=== PATIENT | male | born 1990 | race Caucasian/White ===

== ENCOUNTER 2022-02-04 14:13 | Inpatient (IN) ==
[2022-02-04 14:56] LABS: Basophils # 0.1 K/mcL (0.0-0.2); Basophils % 0.4 %; Eosinophils # 0.3 K/mcL (0.0-0.6); Eosinophils % 1.9 %; Hematocrit 45.5 % (37.5-50.1); Hemoglobin 15.1 g/dL (12.9-16.9); Immature Granulocytes % 0.3 % (0-4); Lymphocytes # 1.5 K/mcL (0.6-4.6); Lymphocytes % 10.4 %; Mean Corpuscular HGB Conc 33.2 g/dL (31.6-35.5); Mean Corpuscular Hemoglobin 28.9 pg (28.0-33.3); Monocytes # 0.7 K/mcL (0.0-1.3); Monocytes % 4.7 %; Neutrophils # 11.6 K/mcL (1.6-8.9); Platelet Count 283 K/mcL (140-400); Red Blood Count 5.23 M/mcL (4.19-5.50); Red Cell Distribution Width 12.5 % (11.5-14.5); Segmented Neutrophils % 82.3 %
[2022-02-04 15:16] LABS: BUN/Creatinine Ratio 10 (6-26); Blood Urea Nitrogen 8 mg/dL (6-20); Calcium 10.2 mg/dL (8.6-10.3); Carbon Dioxide 30 mEq/L (23-29); Chloride 98 mEq/L (98-107); Glucose 117 mg/dL (70-105); Osmolality,Calculated 281 (280-300); Sodium 136 mEq/L (136-145); eGFR For African Americans > 60 (> 60); eGFR For Non-African Americans > 60 (> 60)
[2022-02-04 15:30] LABS: Influenza A PCR Negative (Negative); Influenza B PCR Negative (Negative); Resp. Syncytial Virus PCR Negative (Negative)
[2022-02-04] MEDS ORDERED: Azithromycin 500 MG in 0.9 % Sodium Chloride 250 ML IVPB ONE (15:51)
[2022-02-04] MEDS ORDERED: Ondansetron ODT 4 MG TAB.RAPDIS SL PRN (16:00)
[2022-02-04] MEDS ORDERED: Acetaminophen 325 MG TABLET PO PRN (16:00)
[2022-02-04] MEDS ORDERED: Naloxone 0.4 MG/ML INJ IVP PRN (16:00)
[2022-02-04] MEDS ORDERED: Albuterol 2.5 MG/3 ML NEBULIZER IH PRN (16:08)
[2022-02-04] MEDS: levoFLOXacin 750 MG/150 ML 750 MG/150 ML BAG IVPB SCH (16:35)
[2022-02-04 16:40] LABS: SARS-CoV-2 by PCR (In House) Negative (Negative)
[2022-02-04] MEDS: Acetylcysteine 10% 2 ML INHSOL IH SCH ×3 (17:32→23:38)
[2022-02-04] MEDS: MethylPREDNISolone 40 MG/ML VIAL IVP SCH (18:07)
[2022-02-04] MEDS ORDERED: Ipratropium/Albuterol Neb 3 ML IH SCH (20:00)
[2022-02-04] MEDS ORDERED: lamoTRIgine 100 MG TABLET PO SCH (22:45)
[2022-02-04] MEDS: diazePAM 5 MG TABLET PO SCH (23:18)
[2022-02-04] MEDS: Gabapentin 300 MG CAPSULE PO SCH (23:18)
[2022-02-04] MEDS: Levalbuterol Neb 0.63 MG/3 ML IH SCH (23:38)
[2022-02-05] MEDS: Levalbuterol Neb 0.63 MG/3 ML IH SCH ×6 (04:31→23:33)
[2022-02-05] MEDS: Acetylcysteine 10% 2 ML INHSOL IH SCH ×6 (04:32→23:33)
[2022-02-05] MEDS: FLUPHENAZINE 1 MG PO SCH ×2 (06:09→16:14)
[2022-02-05] MEDS: MethylPREDNISolone 40 MG/ML VIAL IVP SCH ×2 (06:09→16:13)
[2022-02-05] MEDS: BANZEL 400 MG PO SCH ×2 (06:09→20:22)
[2022-02-05] MEDS: diazePAM 5 MG TABLET PO SCH ×2 (06:10→20:26)
[2022-02-05] MEDS: AMPHETAMINE PO SCH (06:11)
[2022-02-05] MEDS: Clobazam [Onfi] 10 MG PO SCH ×2 (06:11→16:42)
[2022-02-05] MEDS: DEXTROAMPHETAMINE PO SCH (06:11)
[2022-02-05 06:44] LABS: Basophils % 0.1 %; Eosinophils # 0.1 K/mcL (0.0-0.6); Eosinophils % 0.7 %; Hemoglobin 13.9 g/dL (12.9-16.9); Immature Granulocytes % 0.4 % (0-4); Lymphocytes # 2.5 K/mcL (0.6-4.6); Mean Corpuscular HGB Conc 33.1 g/dL (31.6-35.5); Mean Corpuscular Hemoglobin 28.9 pg (28.0-33.3); Mean Corpuscular Volume 87.3 fL (83.0-100.0); Mean Platelet Volume 10.4 fL (9.4-12.4); Monocytes # 0.8 K/mcL (0.0-1.3); Monocytes % 5.3 %; Neutrophils # 10.6 K/mcL (1.6-8.9); Platelet Count 241 K/mcL (140-400); Red Blood Count 4.81 M/mcL (4.19-5.50); Red Cell Distribution Width 12.7 % (11.5-14.5); Segmented Neutrophils % 75.5 %; White Blood Count 14.1 K/mcL (4.3-11.1)
[2022-02-05 07:07] LABS: BUN/Creatinine Ratio 14 (6-26); Blood Urea Nitrogen 9 mg/dL (6-20); Calcium 9.6 mg/dL (8.6-10.3); Carbon Dioxide 28 mEq/L (23-29); Chloride 100 mEq/L (98-107); Glucose 101 mg/dL (70-105); Osmolality,Calculated 279 (280-300); Potassium 3.9 mEq/L (3.5-5.1); Sodium 135 mEq/L (136-145); eGFR For African Americans > 60 (> 60); eGFR For Non-African Americans > 60 (> 60)
[2022-02-05] MEDS ORDERED: SUMAtriptan succinate 50 MG TABLET PO PRN (07:34)
[2022-02-05] MEDS: Cyanocobalamin (B-12) 1,000 MCG TABLET PO SCH (07:40)
[2022-02-05] MEDS: Cholecalciferol (D-3) 1,000 UNIT (25MCG) TABLET PO SCH (07:40)
[2022-02-05] MEDS ORDERED: levoFLOXacin 750 MG/150 ML 750 MG/150 ML BAG IVPB SCH (09:00)
[2022-02-05] MEDS: Azelastine 0.1% Nasal Spray 30 ML BOTTLE NS SCH ×2 (11:10→20:21)
[2022-02-05] MEDS ORDERED: Fluticasone Propionate Nasal 50 MCG/SPRAY BOTTLE NS PRN (11:46)
[2022-02-05] MEDS: levoFLOXacin 750 MG/150 ML 750 MG/150 ML BAG IVPB SCH (16:12)
[2022-02-05] MEDS: Plecanatide [Trulance] 3 MG PO SCH (16:17)
[2022-02-05] MEDS: Gabapentin 300 MG CAPSULE PO SCH (20:21)
[2022-02-05] MEDS: LAMOTRIGINE 300 MG PO SCH (20:23)
[2022-02-06] MEDS ORDERED: *HR* LORazepam 2 MG/ML VIAL IVP ONE ×2 (03:18→12:46)
[2022-02-06] MEDS: Levalbuterol Neb 0.63 MG/3 ML IH SCH ×6 (04:26→23:44)
[2022-02-06] MEDS: Acetylcysteine 10% 2 ML INHSOL IH SCH ×6 (04:26→23:45)
[2022-02-06 04:57] LABS: Basophils % 0.1 %; Eosinophils # 0.3 K/mcL (0.0-0.6); Hematocrit 42.2 % (37.5-50.1); Hemoglobin 13.9 g/dL (12.9-16.9); Immature Granulocytes % 0.4 % (0-4); Lymphocytes % 14.7 %; Mean Corpuscular HGB Conc 32.9 g/dL (31.6-35.5); Mean Corpuscular Hemoglobin 28.8 pg (28.0-33.3); Mean Corpuscular Volume 87.6 fL (83.0-100.0); Mean Platelet Volume 10.3 fL (9.4-12.4); Monocytes # 0.8 K/mcL (0.0-1.3); Monocytes % 6.1 %; Neutrophils # 10.6 K/mcL (1.6-8.9); Platelet Count 224 K/mcL (140-400); Red Blood Count 4.82 M/mcL (4.19-5.50); Red Cell Distribution Width 12.8 % (11.5-14.5); Segmented Neutrophils % 76.7 %; White Blood Count 13.8 K/mcL (4.3-11.1)
[2022-02-06 05:16] LABS: BUN/Creatinine Ratio 20 (6-26); Blood Urea Nitrogen 13 mg/dL (6-20); Calcium 9.6 mg/dL (8.6-10.3); Carbon Dioxide 25 mEq/L (23-29); Chloride 98 mEq/L (98-107); Glucose 96 mg/dL (70-105); Magnesium 1.9 mg/dL (1.6-2.6); Osmolality,Calculated 280 (280-300); Potassium 3.7 mEq/L (3.5-5.1); Sodium 135 mEq/L (136-145); eGFR For African Americans > 60 (> 60); eGFR For Non-African Americans > 60 (> 60)
[2022-02-06] MEDS: MethylPREDNISolone 40 MG/ML VIAL IVP SCH ×2 (06:03→17:09)
[2022-02-06] MEDS: Magnesium Oxide 400 MG TABLET PO SCH (06:04)
[2022-02-06] MEDS: diazePAM 5 MG TABLET PO SCH ×3 (06:04→20:40)
[2022-02-06] MEDS: BANZEL 400 MG PO SCH ×2 (06:05→20:39)
[2022-02-06] MEDS: FLUPHENAZINE 1 MG PO SCH ×2 (06:06→17:07)
[2022-02-06] MEDS: DEXTROAMPHETAMINE PO SCH (06:16)
[2022-02-06] MEDS: AMPHETAMINE PO SCH (06:16)
[2022-02-06] MEDS: Clobazam [Onfi] 10 MG PO SCH ×2 (06:16→17:08)
[2022-02-06] MEDS: Cholecalciferol (D-3) 1,000 UNIT (25MCG) TABLET PO SCH (08:53)
[2022-02-06] MEDS: Azelastine 0.1% Nasal Spray 30 ML BOTTLE NS SCH ×2 (08:53→21:35)
[2022-02-06] MEDS: Cyanocobalamin (B-12) 1,000 MCG TABLET PO SCH (08:53)
[2022-02-06] MEDS ORDERED: Isovue-370 500 ML BOTTLE IVP ONE (10:57)
[2022-02-06 11:25] LABS: ABG Base Excess 2 mEq/L (-2 to 3); ABG HCO3 27 mEq/L (21-27); ABG Oxygen Saturation 96 % (95-98); ABG PCO2 42 mmHg (35-45); ABG PH 7.41 pH Units (7.32-7.45); ABG PO2 83 mmHg (85-104); ABG TCO2 28 mEq/L (20-26); Blood Gas Pressure Support 6 cm H2O
[2022-02-06] MEDS ORDERED: Haloperidol Lactate 5 MG/ML VIAL IVP ONE (12:12)
[2022-02-06 15:40] LABS: Adenovirus Not Detected (Not Detect); Coronavirus 229E Not Detected (Not Detect); Coronavirus HKU1 Not Detected (Not Detect); Coronavirus NL63 Not Detected (Not Detect); Coronavirus OC43 Not Detected (Not Detect); Human Metapneumovirus Not Detected (Not Detect); Human Rhinovirus/Enterovirus Not Detected (Not Detect); Influenza A Subtype 2009 H1 Not Detected (Not Detect); Influenza B Not Detected (Not Detect); Parainfluenza Virus 1 Not Detected (Not Detect); Parainfluenza Virus 2 Not Detected (Not Detect); Parainfluenza Virus 3 Not Detected (Not Detect); Parainfluenza Virus 4 Not Detected (Not Detect); Respiratory Syncytial Virus Not Detected (Not Detect); SARS-CoV-2 Not Detected (Not Detect)
[2022-02-06 15:41] LABS: Bordetella Pertussis Not Detected (Not Detect); Chlamydophila pneumoniae Not Detected (Not Detect); Mycoplasma pneumoniae Not Detected (Not Detect)
[2022-02-06] MEDS: Plecanatide [Trulance] 3 MG PO SCH (17:08)
[2022-02-06] MEDS: Piperacillin/Tazobactam 3.375 GM in 0.9 % Sodium Chloride Mini Bag 100 ML IVPB SCH (17:09)
[2022-02-06] MEDS: *HR* LORazepam 2 MG/ML VIAL IVP PRN (17:14)
[2022-02-06] MEDS: Melatonin 3 MG TABLET PO SCH (20:23)
[2022-02-06] MEDS: Gabapentin 300 MG CAPSULE PO SCH (20:24)
[2022-02-06] MEDS: LAMOTRIGINE 300 MG PO SCH (20:39)
[2022-02-07] MEDS: Piperacillin/Tazobactam 3.375 GM in 0.9 % Sodium Chloride Mini Bag 100 ML IVPB SCH ×3 (00:02→16:26)
[2022-02-07] MEDS: Acetylcysteine 10% 2 ML INHSOL IH SCH ×6 (04:14→23:56)
[2022-02-07] MEDS: Levalbuterol Neb 0.63 MG/3 ML IH SCH ×6 (04:14→23:55)
[2022-02-07] MEDS: MethylPREDNISolone 40 MG/ML VIAL IVP SCH ×2 (04:39→16:15)
[2022-02-07] MEDS: diazePAM 5 MG TABLET PO SCH ×2 (08:51→21:21)
[2022-02-07] MEDS: Magnesium Oxide 400 MG TABLET PO SCH (08:52)
[2022-02-07] MEDS: Cholecalciferol (D-3) 1,000 UNIT (25MCG) TABLET PO SCH (08:52)
[2022-02-07] MEDS: Cyanocobalamin (B-12) 1,000 MCG TABLET PO SCH (08:52)
[2022-02-07] MEDS: Azelastine 0.1% Nasal Spray 30 ML BOTTLE NS SCH ×2 (08:53→21:21)
[2022-02-07] MEDS: BANZEL 400 MG PO SCH ×2 (08:54→21:17)
[2022-02-07] MEDS: FLUPHENAZINE 1 MG PO SCH ×2 (08:54→16:16)
[2022-02-07] MEDS: Clobazam [Onfi] 10 MG PO SCH ×2 (09:58→16:35)
[2022-02-07] MEDS: DEXTROAMPHETAMINE PO SCH (09:58)
[2022-02-07] MEDS: AMPHETAMINE PO SCH (09:58)
[2022-02-07] MEDS: *HR* LORazepam 2 MG/ML VIAL IVP PRN ×2 (16:16→22:13)
[2022-02-07] MEDS: Plecanatide [Trulance] 3 MG PO SCH (16:17)
[2022-02-07] MEDS: 0.9 % Sodium Chloride 1,000 ML IVC SCH (16:27)
[2022-02-07] MEDS: *HR* Heparin 5,000 UNIT/ML VIAL SQ SCH (17:20)
[2022-02-07] MEDS: Gabapentin 300 MG CAPSULE PO SCH (21:16)
[2022-02-07] MEDS: Melatonin 3 MG TABLET PO SCH (21:17)
[2022-02-07] MEDS: LAMOTRIGINE 300 MG PO SCH (21:18)
[2022-02-08] MEDS: Piperacillin/Tazobactam 3.375 GM in 0.9 % Sodium Chloride Mini Bag 100 ML IVPB SCH ×3 (01:04→15:58)
[2022-02-08] MEDS: Acetylcysteine 10% 2 ML INHSOL IH SCH ×5 (04:15→19:52)
[2022-02-08] MEDS: Levalbuterol Neb 0.63 MG/3 ML IH SCH ×5 (04:15→19:52)
[2022-02-08] MEDS: 0.9 % Sodium Chloride 1,000 ML IVC SCH ×2 (04:57→20:18)
[2022-02-08] MEDS: MethylPREDNISolone 40 MG/ML VIAL IVP SCH (04:57)
[2022-02-08] MEDS: *HR* Heparin 5,000 UNIT/ML VIAL SQ SCH ×2 (06:23→16:04)
[2022-02-08] MEDS: Magnesium Oxide 400 MG TABLET PO SCH (07:00)
[2022-02-08] MEDS: BANZEL 400 MG PO SCH ×2 (07:01→20:21)
[2022-02-08] MEDS: FLUPHENAZINE 1 MG PO SCH ×2 (07:03→15:58)
[2022-02-08] MEDS: diazePAM 5 MG TABLET PO SCH ×2 (07:04→20:19)
[2022-02-08 07:21] LABS: Basophils % 0.3 %; Eosinophils # 0.1 K/mcL (0.0-0.6); Eosinophils % 1.1 %; Hematocrit 40.3 % (37.5-50.1); Hemoglobin 13.1 g/dL (12.9-16.9); Immature Granulocytes % 0.6 % (0-4); Lymphocytes # 1.3 K/mcL (0.6-4.6); Lymphocytes % 11.2 %; Mean Corpuscular HGB Conc 32.5 g/dL (31.6-35.5); Mean Corpuscular Volume 89.4 fL (83.0-100.0); Mean Platelet Volume 10.1 fL (9.4-12.4); Monocytes # 0.4 K/mcL (0.0-1.3); Monocytes % 3.2 %; Platelet Count 228 K/mcL (140-400); Red Blood Count 4.51 M/mcL (4.19-5.50); Red Cell Distribution Width 12.8 % (11.5-14.5); Segmented Neutrophils % 83.6 %; White Blood Count 11.9 K/mcL (4.3-11.1)
[2022-02-08 07:41] LABS: BUN/Creatinine Ratio 28 (6-26); Blood Urea Nitrogen 16 mg/dL (6-20); Calcium 9.4 mg/dL (8.6-10.3); Carbon Dioxide 28 mEq/L (23-29); Chloride 102 mEq/L (98-107); Glucose 98 mg/dL (70-105); Osmolality,Calculated 285 (280-300); Potassium 3.9 mEq/L (3.5-5.1); Sodium 137 mEq/L (136-145); eGFR For African Americans > 60 (> 60); eGFR For Non-African Americans > 60 (> 60)
[2022-02-08] MEDS: AMPHETAMINE PO SCH (09:14)
[2022-02-08] MEDS: Clobazam [Onfi] 10 MG PO SCH ×2 (09:14→16:12)
[2022-02-08] MEDS: DEXTROAMPHETAMINE PO SCH (09:14)
[2022-02-08] MEDS: Azelastine 0.1% Nasal Spray 30 ML BOTTLE NS SCH ×2 (09:15→20:22)
[2022-02-08] MEDS: Cyanocobalamin (B-12) 1,000 MCG TABLET PO SCH (09:18)
[2022-02-08] MEDS: Cholecalciferol (D-3) 1,000 UNIT (25MCG) TABLET PO SCH (09:19)
[2022-02-08] MEDS ORDERED: Dextrose Gel 15 GM/37.5 ML TUBE PO PRN ×2 (13:15)
[2022-02-08] MEDS ORDERED: D5% in Water 1,000 ML IVC PRN (13:15)
[2022-02-08] MEDS ORDERED: *HR* Dextrose 50 % in Water (Syg) 50 ML SYRINGE IVP PRN (13:15)
[2022-02-08] MEDS: Plecanatide [Trulance] 3 MG PO SCH (15:58)
[2022-02-08] MEDS: GuaiFENesin/Dextromethorphan TABLET PO SCH (20:19)
[2022-02-08] MEDS: Lactobacillus 1 EACH CAP.SPRINK PO SCH (20:19)
[2022-02-08] MEDS: *HR* LORazepam 2 MG/ML VIAL IVP PRN (20:20)
[2022-02-08] MEDS: Gabapentin 300 MG CAPSULE PO SCH (20:20)
[2022-02-08] MEDS: Chlorhexidine Rinse 15 ML MOUTHWASH MM SCH (20:20)
[2022-02-08] MEDS: Melatonin 3 MG TABLET PO SCH (20:20)
[2022-02-08] MEDS: LAMOTRIGINE 300 MG PO SCH (20:21)
[2022-02-09] MEDS: Levalbuterol Neb 0.63 MG/3 ML IH SCH ×7 (00:30→23:41)
[2022-02-09] MEDS: Acetylcysteine 10% 2 ML INHSOL IH SCH ×2 (00:30→04:19)
[2022-02-09] MEDS: Piperacillin/Tazobactam 3.375 GM in 0.9 % Sodium Chloride Mini Bag 100 ML IVPB SCH ×2 (00:43→08:31)
[2022-02-09 05:54] LABS: Basophils % 0.3 %; Eosinophils # 0.3 K/mcL (0.0-0.6); Eosinophils % 3.2 %; Hematocrit 39.7 % (37.5-50.1); Hemoglobin 12.8 g/dL (12.9-16.9); Immature Granulocytes % 0.6 % (0-4); Lymphocytes # 3.1 K/mcL (0.6-4.6); Lymphocytes % 31.3 %; Mean Corpuscular HGB Conc 32.2 g/dL (31.6-35.5); Mean Corpuscular Hemoglobin 28.8 pg (28.0-33.3); Mean Corpuscular Volume 89.4 fL (83.0-100.0); Mean Platelet Volume 10.1 fL (9.4-12.4); Monocytes # 0.6 K/mcL (0.0-1.3); Monocytes % 5.8 %; Neutrophils # 5.8 K/mcL (1.6-8.9); Platelet Count 220 K/mcL (140-400); Red Blood Count 4.44 M/mcL (4.19-5.50); Red Cell Distribution Width 12.8 % (11.5-14.5); Segmented Neutrophils % 58.8 %; White Blood Count 9.9 K/mcL (4.3-11.1)
[2022-02-09 06:30] LABS: BUN/Creatinine Ratio 18 (6-26); Blood Urea Nitrogen 11 mg/dL (6-20); Carbon Dioxide 28 mEq/L (23-29); Chloride 104 mEq/L (98-107); Glucose 101 mg/dL (70-105); Magnesium 1.7 mg/dL (1.6-2.6); Osmolality,Calculated 288 (280-300); Phosphorous 4.2 mg/dL (2.7-4.5); Potassium 3.7 mEq/L (3.5-5.1); Sodium 139 mEq/L (136-145); eGFR For African Americans > 60 (> 60); eGFR For Non-African Americans > 60 (> 60)
[2022-02-09] MEDS: *HR* Heparin 5,000 UNIT/ML VIAL SQ SCH ×2 (06:33→16:17)
[2022-02-09] MEDS ORDERED: Potassium Chloride Elixir 20 MEQ/15 ML UDC PO ONE (07:25)
[2022-02-09] MEDS: BANZEL 400 MG PO SCH ×2 (08:26→20:21)
[2022-02-09] MEDS: FLUPHENAZINE 1 MG PO SCH ×2 (08:26→16:20)
[2022-02-09] MEDS: Lactobacillus 1 EACH CAP.SPRINK PO SCH ×2 (08:31→20:19)
[2022-02-09] MEDS: Cyanocobalamin (B-12) 1,000 MCG TABLET PO SCH (08:31)
[2022-02-09] MEDS: Multivit/Ca/Min/Fe/FA 1 TAB TABLET PO SCH (08:31)
[2022-02-09] MEDS: MethylPREDNISolone 40 MG/ML VIAL IVP SCH (08:31)
[2022-02-09] MEDS: Cholecalciferol (D-3) 1,000 UNIT (25MCG) TABLET PO SCH (08:31)
[2022-02-09] MEDS: GuaiFENesin/Dextromethorphan TABLET PO SCH ×2 (08:31→20:19)
[2022-02-09] MEDS: Magnesium Oxide 400 MG TABLET PO SCH (08:31)
[2022-02-09] MEDS: diazePAM 5 MG TABLET PO SCH ×2 (08:33→20:27)
[2022-02-09] MEDS: Chlorhexidine Rinse 15 ML MOUTHWASH MM SCH ×2 (08:34→20:20)
[2022-02-09] MEDS: Azelastine 0.1% Nasal Spray 30 ML BOTTLE NS SCH ×2 (08:43→20:23)
[2022-02-09] MEDS: 0.9 % Sodium Chloride 1,000 ML IVC SCH ×2 (08:46→23:34)
[2022-02-09] MEDS: AMPHETAMINE PO SCH (10:46)
[2022-02-09] MEDS: Clobazam [Onfi] 10 MG PO SCH ×2 (10:46→16:17)
[2022-02-09] MEDS: DEXTROAMPHETAMINE PO SCH (10:46)
[2022-02-09] MEDS: Plecanatide [Trulance] 3 MG PO SCH (16:20)
[2022-02-09] MEDS: Gabapentin 300 MG CAPSULE PO SCH (20:19)
[2022-02-09] MEDS: Melatonin 3 MG TABLET PO SCH (20:20)
[2022-02-09] MEDS: LAMOTRIGINE 300 MG PO SCH (20:22)
[2022-02-09] MEDS: *HR* LORazepam 2 MG/ML VIAL IVP PRN (21:25)
[2022-02-10] MEDS: Levalbuterol Neb 0.63 MG/3 ML IH SCH ×4 (04:02→15:50)
[2022-02-10 04:11] LABS: Basophils % 0.5 %; Eosinophils # 0.4 K/mcL (0.0-0.6); Eosinophils % 4.8 %; Hematocrit 39.6 % (37.5-50.1); Hemoglobin 12.8 g/dL (12.9-16.9); Immature Granulocytes % 0.6 % (0-4); Lymphocytes # 3.3 K/mcL (0.6-4.6); Lymphocytes % 38.8 %; Mean Corpuscular HGB Conc 32.3 g/dL (31.6-35.5); Mean Corpuscular Hemoglobin 28.8 pg (28.0-33.3); Mean Corpuscular Volume 89.2 fL (83.0-100.0); Mean Platelet Volume 10.5 fL (9.4-12.4); Monocytes # 0.6 K/mcL (0.0-1.3); Monocytes % 7.2 %; Neutrophils # 4.1 K/mcL (1.6-8.9); Platelet Count 254 K/mcL (140-400); Red Blood Count 4.44 M/mcL (4.19-5.50); Segmented Neutrophils % 48.1 %; White Blood Count 8.5 K/mcL (4.3-11.1)
[2022-02-10 05:36] LABS: BUN/Creatinine Ratio 15 (6-26); Blood Urea Nitrogen 8 mg/dL (6-20); Calcium 9.1 mg/dL (8.6-10.3); Carbon Dioxide 29 mEq/L (23-29); Chloride 104 mEq/L (98-107); Glucose 100 mg/dL (70-105); Osmolality,Calculated 286 (280-300); Potassium 3.7 mEq/L (3.5-5.1); Sodium 139 mEq/L (136-145); eGFR For African Americans > 60 (> 60); eGFR For Non-African Americans > 60 (> 60)
[2022-02-10] MEDS: Magnesium Oxide 400 MG TABLET PO SCH (06:36)
[2022-02-10] MEDS: *HR* Heparin 5,000 UNIT/ML VIAL SQ SCH (06:37)
[2022-02-10] MEDS: diazePAM 5 MG TABLET PO SCH (06:41)
[2022-02-10] MEDS: FLUPHENAZINE 1 MG PO SCH (06:43)
[2022-02-10] MEDS: BANZEL 400 MG PO SCH (06:43)
[2022-02-10] MEDS: Lactobacillus 1 EACH CAP.SPRINK PO SCH (08:29)
[2022-02-10] MEDS: Clobazam [Onfi] 10 MG PO SCH (08:29)
[2022-02-10] MEDS: GuaiFENesin/Dextromethorphan TABLET PO SCH (08:29)
[2022-02-10] MEDS: Chlorhexidine Rinse 15 ML MOUTHWASH MM SCH (08:29)
[2022-02-10] MEDS: DEXTROAMPHETAMINE PO SCH (08:29)
[2022-02-10] MEDS: Cholecalciferol (D-3) 1,000 UNIT (25MCG) TABLET PO SCH (08:29)
[2022-02-10] MEDS: AMPHETAMINE PO SCH (08:29)
[2022-02-10] MEDS: Multivit/Ca/Min/Fe/FA 1 TAB TABLET PO SCH (08:29)
[2022-02-10] MEDS: Cyanocobalamin (B-12) 1,000 MCG TABLET PO SCH (08:29)
[2022-02-10] MEDS: Azelastine 0.1% Nasal Spray 30 ML BOTTLE NS SCH (08:30)
[2022-02-10] MEDS: MethylPREDNISolone 40 MG/ML VIAL IVP SCH (08:30)
[2022-02-10 11:41] VITALS: BP 102/48; PULSE 66; TEMP 98.1
[2022-02-10 11:43] VITALS: O2SAT 92
[2022-02-10] MEDS ORDERED: E-Z-PAQUE (BARIUM SULF) SUSP 1 BOTTLE PO ONE (12:48)
[2022-02-10] MEDS ORDERED: E-Z-HD (BARIUM SULF) SUSPENSION PO ONE (12:48)
== END 2022-02-10 15:45 | disposition home or self-care (01) | DRG 720 ==
LOC: 3NENU 14:13 → EMEROOARM 14:13 → SUATTDRO 17:08 → 3NENU 17:43 → SUATTDRO 02-05 16:21
PROVIDERS: ADMIT Internal Medicine; ATTEND Internal Medicine

== ENCOUNTER 2022-02-24 12:06 | Observation (INO) ==
[2022-02-24] MEDS ORDERED: *HR* LORazepam 2 MG/ML VIAL IVP ONE (18:21)
[2022-02-24] MEDS ORDERED: Albuterol 2.5 MG/3 ML NEBULIZER IH ONE (18:21)
[2022-02-24] MEDS ORDERED: methylPREDNISolone 125 MG/2 ML VIAL IVP ONE (18:21)
[2022-02-24] MEDS ORDERED: Levalbuterol Neb 1.25 MG/3 ML IH ONE (18:31)
[2022-02-24] MEDS ORDERED: Levalbuterol Neb 1.25 MG/3 ML ONE (18:32)
[2022-02-24 18:36] LABS: VBG HCO3 26 mEq/L (21-27); VBG PCO2 43 mmHg (41-51); VBG PH 7.39 pH Units (7.32-7.42); VBG PO2 58 mmHg (25-50)
[2022-02-24 18:46] LABS: Basophils % 0.3 %; Eosinophils # 0.2 K/mcL (0.0-0.6); Eosinophils % 1.2 %; Hematocrit 44.3 % (37.5-50.1); Hemoglobin 14.3 g/dL (12.9-16.9); Immature Granulocytes % 0.4 % (0-4); Lymphocytes # 2.1 K/mcL (0.6-4.6); Mean Corpuscular HGB Conc 32.3 g/dL (31.6-35.5); Mean Corpuscular Hemoglobin 28.7 pg (28.0-33.3); Mean Corpuscular Volume 88.8 fL (83.0-100.0); Mean Platelet Volume 10.3 fL (9.4-12.4); Monocytes # 0.9 K/mcL (0.0-1.3); Monocytes % 6.1 %; Neutrophils # 10.6 K/mcL (1.6-8.9); Platelet Count 303 K/mcL (140-400); Red Blood Count 4.99 M/mcL (4.19-5.50); Red Cell Distribution Width 13.2 % (11.5-14.5); White Blood Count 13.8 K/mcL (4.3-11.1)
[2022-02-24 19:33] LABS: BUN/Creatinine Ratio 11 (6-26); Blood Urea Nitrogen 7 mg/dL (6-20); Calcium 9.7 mg/dL (8.6-10.3); Carbon Dioxide 27 mEq/L (23-29); Chloride 101 mEq/L (98-107); Glucose 84 mg/dL (70-105); Osmolality,Calculated 279 (280-300); Potassium 3.7 mEq/L (3.5-5.1); Sodium 136 mEq/L (136-145); Troponin I < 0.03 ng/mL (< 0.04); eGFR For African Americans > 60 (> 60); eGFR For Non-African Americans > 60 (> 60)
[2022-02-24 20:16] LABS: Bilirubin,Urine Negative (Negative); Blood,Urine Negative (Negative); Clarity,Urine Clear (Clear); Color,Urine Colorless (Yellow); Glucose,Urine (UA) Normal (Normal); Ketones,Urine Negative (Negative); Leukocyte Esterase,Urine Negative (Negative); Nitrite,Urine Negative (Negative); PH,Urine 7.5 pH Units (5.0-8.0); Protein,Urine Negative (Neg-Trace); Specific Gravity,Urine 1.008 (1.010-1.025); Urobilinogen,Urine Normal (Normal)
[2022-02-24] MEDS ORDERED: hydrOXYzine pamoate 25 MG CAPSULE PO ONE (20:36)
[2022-02-24] MEDS ORDERED: Ondansetron 4 MG/2 ML VIAL IVP PRN (23:19)
[2022-02-24] MEDS ORDERED: Melatonin 3 MG TABLET PO PRN (23:19)
[2022-02-24] MEDS ORDERED: Acetaminophen 325 MG TABLET PO PRN (23:19)
[2022-02-24] MEDS ORDERED: Naloxone 0.4 MG/ML INJ IVP PRN (23:19)
[2022-02-24] MEDS ORDERED: Scopolamine Patch 1.5 MG PATCH.TD72 TD ONE (23:24)
[2022-02-25 03:24] LABS: Basophils % 0.1 %; Hematocrit 43.6 % (37.5-50.1); Hemoglobin 14.4 g/dL (12.9-16.9); Immature Granulocytes % 0.3 % (0-4); Lymphocytes # 0.8 K/mcL (0.6-4.6); Lymphocytes % 7.2 %; Mean Corpuscular Hemoglobin 28.8 pg (28.0-33.3); Mean Corpuscular Volume 87.2 fL (83.0-100.0); Mean Platelet Volume 10.5 fL (9.4-12.4); Monocytes # 0.3 K/mcL (0.0-1.3); Monocytes % 2.3 %; Neutrophils # 9.8 K/mcL (1.6-8.9); Platelet Count 325 K/mcL (140-400); Red Cell Distribution Width 13.1 % (11.5-14.5); Segmented Neutrophils % 90.1 %; White Blood Count 10.9 K/mcL (4.3-11.1)
[2022-02-25 03:35] LABS: BUN/Creatinine Ratio 10 (6-26); Blood Urea Nitrogen 6 mg/dL (6-20); C-Reactive Protein 81 mg/L (Less than 10); Calcium 9.8 mg/dL (8.6-10.3); Carbon Dioxide 26 mEq/L (23-29); Chloride 101 mEq/L (98-107); Glucose 125 mg/dL (70-105); Osmolality,Calculated 281 (280-300); Potassium 4.1 mEq/L (3.5-5.1); Sodium 136 mEq/L (136-145); eGFR For African Americans > 60 (> 60); eGFR For Non-African Americans > 60 (> 60)
[2022-02-25] MEDS: *HR* Enoxaparin 40 MG/0.4 ML SYRINGE SQ SCH (06:48)
[2022-02-25] MEDS: RUFINAMIDE 400 MG PO SCH ×2 (08:01→21:13)
[2022-02-25] MEDS: Lactobacillus 1 EACH CAP.SPRINK PO SCH (08:11)
[2022-02-25] MEDS: *HR* LORazepam 2 MG/ML VIAL IVP PRN ×2 (08:25→21:11)
[2022-02-25] MEDS: AMPHETAMINE PO SCH (10:16)
[2022-02-25] MEDS: DEXTROAMPHETAMINE PO SCH (10:16)
[2022-02-25] MEDS ORDERED: Fluticasone Propionate Nasal 50 MCG/SPRAY BOTTLE NS PRN (16:26)
[2022-02-25] MEDS ORDERED: SUMAtriptan succinate 50 MG TABLET PO PRN (16:26)
[2022-02-25] MEDS ORDERED: Azelastine 0.1% Nasal Spray 30 ML BOTTLE NS PRN (16:26)
[2022-02-25] MEDS: Ipratropium/Albuterol Neb 3 ML IH PRN ×2 (20:36→23:43)
[2022-02-25] MEDS: Gabapentin 300 MG CAPSULE PO SCH (21:12)
[2022-02-25] MEDS: Melatonin 3 MG TABLET PO SCH (21:12)
[2022-02-25] MEDS: LAMOTRIGINE 300 MG PO SCH (21:13)
[2022-02-25] MEDS: diazePAM 5 MG TABLET PO SCH (21:15)
[2022-02-26] MEDS: Ipratropium/Albuterol Neb 3 ML IH PRN ×4 (04:32→20:19)
[2022-02-26] MEDS: *HR* Enoxaparin 40 MG/0.4 ML SYRINGE SQ SCH (05:30)
[2022-02-26] MEDS: Lactobacillus 1 EACH CAP.SPRINK PO SCH (08:26)
[2022-02-26] MEDS: Cholecalciferol (D-3) 1,000 UNIT (25MCG) TABLET PO SCH (08:26)
[2022-02-26] MEDS: AMPHETAMINE PO SCH (08:26)
[2022-02-26] MEDS: Magnesium Oxide 400 MG TABLET PO SCH (08:26)
[2022-02-26] MEDS: DEXTROAMPHETAMINE PO SCH (08:26)
[2022-02-26] MEDS: diazePAM 5 MG TABLET PO SCH ×2 (08:26→20:53)
[2022-02-26] MEDS: RUFINAMIDE 400 MG PO SCH ×2 (08:27→20:54)
[2022-02-26] MEDS: FLUPHENAZINE HCL 1 MG PO SCH ×2 (08:28→17:00)
[2022-02-26] MEDS: (Cyanocobalamin (Vitamin B-12) [Vitamin B-12] 100 MCG PO SCH (11:49)
[2022-02-26] MEDS: ZINC ACETATE 25 MG PO SCH (11:50)
[2022-02-26] MEDS: (Plecanatide [Trulance] 3 MG Tablet) PO SCH (17:28)
[2022-02-26] MEDS: Melatonin 3 MG TABLET PO SCH (20:52)
[2022-02-26] MEDS: *HR* LORazepam 2 MG/ML VIAL IVP PRN (20:52)
[2022-02-26] MEDS: Gabapentin 300 MG CAPSULE PO SCH (20:53)
[2022-02-26] MEDS: LAMOTRIGINE 300 MG PO SCH (20:54)
[2022-02-27] MEDS: *HR* Enoxaparin 40 MG/0.4 ML SYRINGE SQ SCH (05:06)
[2022-02-27] MEDS: Lactobacillus 1 EACH CAP.SPRINK PO SCH (07:39)
[2022-02-27] MEDS: Cholecalciferol (D-3) 1,000 UNIT (25MCG) TABLET PO SCH (07:39)
[2022-02-27] MEDS: AMPHETAMINE PO SCH (07:40)
[2022-02-27] MEDS: Magnesium Oxide 400 MG TABLET PO SCH (07:40)
[2022-02-27] MEDS: DEXTROAMPHETAMINE PO SCH (07:40)
[2022-02-27] MEDS: diazePAM 5 MG TABLET PO SCH (07:46)
[2022-02-27] MEDS: RUFINAMIDE 400 MG PO SCH (07:58)
[2022-02-27] MEDS: (Cyanocobalamin (Vitamin B-12) [Vitamin B-12] 100 MCG PO SCH (07:58)
[2022-02-27] MEDS: FLUPHENAZINE HCL 1 MG PO SCH ×2 (07:58→15:57)
[2022-02-27] MEDS: ZINC ACETATE 25 MG PO SCH (07:59)
[2022-02-27] MEDS ORDERED: polyethylene glycoL 3350 17 GM POWD.PACK PO SCH (09:00)
[2022-02-27] MEDS ORDERED: Sennosides/Docusate Sodium TABLET PO SCH (09:00)
[2022-02-27 11:41] VITALS: BP 107/72; PULSE 77; TEMP 97.5
[2022-02-27] MEDS: *HR* LORazepam 2 MG/ML VIAL IVP PRN (12:31)
[2022-02-27 15:14] VITALS: O2SAT 96
[2022-02-27] MEDS: (Plecanatide [Trulance] 3 MG Tablet) PO SCH (15:57)
== END 2022-02-27 17:42 | disposition home health service (06) ==
LOC: SUATTDRO → 3NENU 12:06 → EMEROOARM 12:06 → SUATTDRO 02-25 02:56 → 3NENU 02-25 04:11
PROVIDERS: ADMIT Internal Medicine; ATTEND Internal Medicine

== ENCOUNTER 2022-07-07 11:31 | Observation (INO) ==
[2022-07-07 12:21] VITALS: TEMP 98.2
[2022-07-07] MEDS ORDERED: 0.9 % Sodium Chloride 1,000 ML IVC ONE ×2 (12:42)
[2022-07-07] MEDS ORDERED: Iopamidol - 370 500 ML MLS IVP ONE (12:56)
[2022-07-07] MEDS ORDERED: Cefepime HCl 2,000 MG in 0.9 % Sodium Chloride 10 ML IVP ONE (12:59)
[2022-07-07 13:01] LABS: Basophils % 0.2 %; Hematocrit 44.1 % (37.5-50.1); Hemoglobin 14.2 g/dL (12.9-16.9); Immature Granulocytes % 0.7 % (0-4); Lymphocytes # 1.4 K/mcL (0.6-4.6); Lymphocytes % 11.2 %; Mean Corpuscular HGB Conc 32.2 g/dL (31.6-35.5); Mean Corpuscular Hemoglobin 27.8 pg (28.0-33.3); Mean Corpuscular Volume 86.5 fL (83.0-100.0); Mean Platelet Volume 10.5 fL (9.4-12.4); Monocytes # 0.4 K/mcL (0.0-1.3); Monocytes % 3.6 %; Neutrophils # 10.4 K/mcL (1.6-8.9); Platelet Count 174 K/mcL (140-400); Red Cell Distribution Width 13.7 % (11.5-14.5); Segmented Neutrophils % 84.3 %; White Blood Count 12.3 K/mcL (4.3-11.1)
[2022-07-07 13:31] LABS: BUN/Creatinine Ratio 14 (6-26); Blood Urea Nitrogen 11 mg/dL (6-20); Calcium 9.3 mg/dL (8.6-10.3); Carbon Dioxide 31 mEq/L (23-29); Chloride 99 mEq/L (98-107); Glucose 100 mg/dL (70-105); Osmolality,Calculated 281 (280-300); Potassium 4.2 mEq/L (3.5-5.1); Sodium 136 mEq/L (136-145); Troponin I 0.06 ng/mL (< 0.04)
[2022-07-07 13:50] LABS: Bilirubin,Urine Negative (Negative); Blood,Urine Negative (Negative); Clarity,Urine Clear (Clear); Color,Urine Light-Yellow (Yellow); Glucose,Urine (UA) Normal (Normal); Ketones,Urine Negative (Negative); Leukocyte Esterase,Urine Negative (Negative); Nitrite,Urine Negative (Negative); PH,Urine 6.5 pH Units (5.0-8.0); Protein,Urine Trace mg/dL (Neg-Trace); Specific Gravity,Urine 1.015 (1.010-1.025); Urobilinogen,Urine Normal (Normal)
[2022-07-07 14:10] LABS: Influenza A PCR Negative (Negative); Influenza B PCR Negative (Negative); Resp. Syncytial Virus PCR Negative (Negative)
[2022-07-07 14:12] LABS: SARS-CoV-2 by PCR (In House) Positive (Negative)
[2022-07-07] MEDS ORDERED: Ondansetron 4 MG/2 ML VIAL IVP PRN (15:06)
[2022-07-07] MEDS ORDERED: Naloxone 0.4 MG/ML INJ IVP PRN (15:06)
[2022-07-07] MEDS ORDERED: Acetaminophen 650 MG RECTAL SUPP RC PRN (15:06)
[2022-07-07] MEDS ORDERED: Melatonin 3 MG TABLET PO PRN (15:06)
[2022-07-07 17:50] VITALS: BP 132/73; PULSE 81; O2SAT 96
[2022-07-07] MEDS ORDERED: Gabapentin 300 MG CAPSULE PO SCH (21:00)
[2022-07-07] MEDS ORDERED: Piperacillin/Tazobactam 3.375 GM in 0.9 % Sodium Chloride Mini Bag 100 ML IVPB SCH (21:00)
[2022-07-07] MEDS ORDERED: lamoTRIgine 100 MG TABLET PO SCH (21:00)
[2022-07-07 21:14] LABS: C-Reactive Protein 234 mg/L (Less than 10)
[2022-07-07 21:16] LABS: Troponin I < 0.03 ng/mL (< 0.04)
[2022-07-07] MEDS ORDERED: Melatonin 3 MG TABLET PO ONE (21:28)
[2022-07-08] MEDS ORDERED: *HR* Enoxaparin 40 MG/0.4 ML SYRINGE SQ SCH (06:00)
== END 2022-07-07 23:59 | disposition other institution (70) ==
LOC: EMEROOARM 11:31 → 2ANU 11:31
PROVIDERS: ADMIT Internal Medicine; ATTEND Internal Medicine